=== PATIENT | male | born 1970 | race African-American/Black ===

== ENCOUNTER 2022-10-26 05:32 | Emergency (ER) | payer OTHER ==
[~2022-10-26] VITALS: Ht 177.8 cm; Wt 77.0 kg
[~2022-10-26 05:32] MED LIST: ERGO2000 PO; FURO-152 PO; GABA600T PO; HYDR25TA PO; LISI20TA31 PO; METH500T PO; NAPR-681 PO; OMEP20CA14 PO; SULF-165 PO; TRAM50TA3 PO; [UNRECOGNIZED DRUG - OTHER] PO
[2022-10-26 09:25] LABS: BASOPHILS % 0.4 % (0.0-2.0); EOSINOPHILS % 2.1 % (0.0-5.0); HEMATOCRIT. 42.4 % (42.0-52.0); HEMOGLOBIN. 14.6 g/dL (14.0-18.0); LYMPHOCYTES % 8.7 % (20.0-50.0); MEAN CORPUSCULAR HEMOGLOBIN 35.7 pg (28.0-32.0); MEAN CORPUSCULAR VOLUME 103.6 fL (80.0-94.0); MEAN PLATELET VOLUME 9.8 fl (7.4-10.4); MONOCYTES % 11.7 % (2.0-8.0); NEUTROPHILS % 77.1 % (40.0-76.0); PLATELET 217 x1000/uL (130-400); RED CELL DISTRIBUTION WIDTH 14.3 % (11.6-14.6)
[2022-10-26 10:00] VITALS: BP 111/87
[2022-10-26] MEDS ORDERED: TOPUD PO (10:52)
== END 2022-10-26 11:30 | disposition home or self-care (01) ==
LOC: ER 05:54
DX: R07.89 Other chest pain (principal); I10 Essential (primary) hypertension; J45.909 Unspecified asthma, uncomplicated; I51.7 Cardiomegaly; K76.9 Liver disease, unspecified; Z88.0 Allergy status to penicillin; Z79.01 Long term (current) use of anticoagulants; Z87.828 Personal history of other (healed) physical injury and trauma
CPT/HCPCS: 36415; 71101; 85025; 93005; 99285

== ENCOUNTER 2025-03-12 14:06 | Emergency (ER) | payer OTHER ==
[~2025-03-12] VITALS: Ht 170.2 cm; Wt 87.0 kg
[~2025-03-12 14:06] MED LIST changes: +TOPUD PO
[2025-03-12 14:10] VITALS: O2SAT 100
[2025-03-12 16:19] LABS: EOSINOPHILS % 2.3 % (0.0-5.0); HEMATOCRIT. 37.5 % (42.0-52.0); HEMOGLOBIN. 12.6 g/dL (14.0-18.0); LYMPHOCYTES % 22.6 % (20.0-50.0); MEAN CORPUSCULAR HEMOGLOBIN 33.2 pg (28.0-32.0); MEAN CORPUSCULAR HGB CONC 33.6 g/dL (31.0-37.0); MEAN CORPUSCULAR VOLUME 98.8 fL (80.0-94.0); MEAN PLATELET VOLUME 9.3 fl (7.4-10.4); MONOCYTES % 6.8 % (2.0-8.0); NEUTROPHILS % 67.3 % (40.0-76.0); PLATELET 202 x1000/uL (130-400); RED CELL DISTRIBUTION WIDTH 13.2 % (11.6-14.6); WHITE BLOOD COUNT 8.2 x1000/uL (4.5-11.0)
[2025-03-12 16:45] LABS: CHLORIDE 107 mEq/L (98-107); SODIUM 141 mEq/L (136-145)
[2025-03-12 16:46] LABS: CARBON DIOXIDE 28 mEq/L (21-32)
[2025-03-12 16:51] LABS: CREATININE 1.1 mg/dL (0.6-1.3); ETHANOL BLOOD < 10 mg/dL (<10); GLUCOSE 96 mg/dL (70-105); TROPONIN I HIGH SENSITIVITY 9 ng/L (3.0-53); UREA NITROGEN BLOOD 14 mg/dL (9-23)
[2025-03-12 16:53] LABS: ALANINE AMINOTRANSFERASE 15 IU/L (10-49); ALBUMIN 4.5 g/dL (3.2-4.8); ASPARTATE AMINOTRANSFERASE 21 IU/L (<34); BILIRUBIN DIRECT 0.3 mg/dL (<=3.0); BILIRUBIN TOTAL 1.2 mg/dL (0.1-1.0); PROTEIN TOTAL 7.9 g/dL (6.0-8.3)
[2025-03-12] MEDS ORDERED: KETOROLAC 30MG/ML VIAL IM NR (17:00)
[2025-03-12] MEDS ORDERED: LIDO700A15 TP (17:27)
[2025-03-12] MEDS ORDERED: ACET-2708 MT (17:27)
[2025-03-12 17:45] VITALS: BP 156/89; PULSE 71; RESP 16; TEMP 36.6; O2SAT 100
== END 2025-03-12 18:02 | disposition home or self-care (01) ==
LOC: ER 14:06
DX: R10.9 Unspecified abdominal pain (principal); I10 Essential (primary) hypertension; J45.909 Unspecified asthma, uncomplicated; Z88.0 Allergy status to penicillin; Z79.899 Other long term (current) drug therapy; Z98.890 Other specified postprocedural states
CPT/HCPCS: 36415; 74176; 80048; 80076; 80320; 84484; 85025; 99284; G0480